=== PATIENT | female | born 1930 | race Caucasian/White ===

== ENCOUNTER 2017-12-21 11:53 | Inpatient (IN) ==
--- NOTE | 2017-12-21 16:22 | Orthopedic Consult Note ---
Date of Encounter: 12/21/17 Time of Encounter: 14:10 Assessment and Plan (1) Fracture of hip Current Visit: No Status: Acute Hip fracture will require surgical intervention. Discussed case with Dr. Ricardo who recommends right hip hemiarthroplasty to be performed tomorrow (12/22/17). I discussed the procedure with the patient as well as r/b/a and she expressed understanding. Consent obtained and placed in chart. NWB until surgery. NPO after midnight. pain control per hospitalist. Qualifiers: Encounter type: initial encounter Fracture type: closed Laterality: right Qualified Code(s): S72.001A - Fracture of unspecified part of neck of right femur, initial encounter for closed fracture History of Present Illness Chief complaint: right leg pain HPI: Ms. Magaña is a 87 year old female who presented to the ER with right leg pain. Most of her pain in the ankle but also has had some intermittent hip/ thigh aching, worse with walking. She admits to a fall roughly 1 month ago where she missed the last step in her home. She states she was unable to ambulate and family found her a couple days later. Since that time she has been "hobbling" around with a walker bearing some weight to leg. Normally she walked around without a walker before the fall. She states she never sought medical attention due to having things to take care of at home (taxes, roof repairs) but decided to seek medical attention now because her shoulders are getting sore from using the walker. Denies any numbness or tingling to legs. Denies any chest pain, SOB, fevers. Past Med Surg Social Fam HX - Past Medical History Medical history: no medical history Psychiatric history: no psych history - Past Surgical History Surgical History: non-contributory - Social History Smoking Status: Never smoker Smokeless Tobacco Status: No Alcohol use: none Drug use: none Medications and Allergies No Known Home Drugs 12/21/17 [History] 3 Allergy/AdvReac Type Severity Reaction Status Date / Time oseltamivir [From Tamiflu] Allergy Hallucinati Verified 12/21/17 12:46 ng All Systems Reviewed: The remainder of the systems were reviewed and are negative - Constitutional Constitutional: as per HPI - Cardiovascular Cardiovascular: as per HPI - Respiratory Respiratory: as per HPI - Musculoskeletal Musculoskeletal: as per HPI Physical Exam - Constitutional Vitals: Temp Pulse Resp BP Pulse Ox 98.1 F 81 18 143/63 98 12/21/17 16:12 12/21/17 16:12 12/21/17 16:12 12/21/17 16:12 12/21/17 16:12 - Hip right Tenderness with palpation: none (no wounds, lesions or ecchymosis to RLE, RLE shortened. no tenderness to palpation of hip. no calf tenderness to palpation. restricted hip motion seondary to known fracture. good dorsiflexion of foot, grossly NV intact.) Results - Labs Labs: All other labs normal. - Diagnostic results Hip x-ray: report reviewed, image reviewed Consult Discharge Plan - Plan Referrals: NONE,PCP [Primary Care Provider] - - Attending Attestation Case and plan of care discussed with supervising physician who was available for all aspects of care.
[2017-12-21] MEDS ORDERED: Acetaminophen 325 MG TABLET PO PRN (17:19)
[2017-12-21] MEDS ORDERED: Naloxone 0.4 MG/ML INJ IVP PRN (17:19)
[2017-12-21] MEDS ORDERED: Ondansetron 4 MG/2 ML VIAL IVP PRN (17:23)
--- NOTE | 2017-12-21 17:28 | Internal Med History&Physical ---
<Herb Lopez - Last Filed: 12/21/17 17:25> Date of Encounter: 12/21/17 Time of Encounter: 17:25 Internal Medicine - H&P: HPI Admitted From: Home Plans for Post Hospital Care: Transfer Jail Care History of present illness: Ms. Magaña is a 87 year old female who presented to the ER with right leg pain. Most of her pain in the ankle but also has had some intermittent hip/ thigh aching, worse with walking. She admits to a fall roughly 1 month ago where she missed the last step in her home. She states she was unable to ambulate and family found her a couple days later. Since that time she has been "hobbling" around with a walker bearing some weight to leg. Normally she walked around without a walker before the fall. She states she never sought medical attention due to having things to take care of at home (taxes, roof repairs) but decided to seek medical attention now because her shoulders are getting sore from using the walker. Denies any numbness or tingling to legs. Denies any chest pain, SOB, fevers. Past Med Surg Social Fam HX - Past Medical History Medical history: no medical history Psychiatric history: no psych history - Past Surgical History Surgical History: non-contributory - Social History Smoking Status: Never smoker Smokeless Tobacco Status: No Alcohol use: none Drug use: none Internal Medicine - H&P: Meds No Known Home Drugs 12/21/17 [History] 3 Allergy/AdvReac Type Severity Reaction Status Date / Time oseltamivir [From Tamiflu] Allergy Hallucinati Verified 12/21/17 12:46 ng All Systems PM: A 10-system review of systems was performed and is negative for pertinent findings except as documented above in the HPI. Review of systems: REVIEW OF SYSTEMS: CONSTITUTIONAL: No weight loss, fever, chills, weakness or fatigue. HEENT: Eyes: No visual loss, blurred vision, double vision or yellow sclerae. Ears, Nose, Throat: No hearing loss, sneezing, congestion, runny nose or sore throat. SKIN: No rash or itching. CARDIOVASCULAR: No chest pain, chest pressure or chest discomfort. No palpitations or edema. RESPIRATORY: No shortness of breath, cough or sputum. GASTROINTESTINAL: No anorexia, nausea, vomiting or diarrhea. No abdominal pain or blood. GENITOURINARY: No dysuria, urgency, or frequency. NEUROLOGICAL: No headache, dizziness, syncope, paralysis, ataxia, numbness or tingling in the extremities. No change in bowel or bladder control. MUSCULOSKELETAL: see HPI. HEMATOLOGIC: No anemia, bleeding or bruising. LYMPHATICS: No enlarged nodes. No history of splenectomy. PSYCHIATRIC: No history of depression or anxiety. ENDOCRINOLOGIC: No reports of sweating, cold or heat intolerance. No polyuria or polydipsia. - Constitutional Vitals: Temp Pulse Resp BP Pulse Ox 98.1 F 81 18 143/63 98 12/21/17 16:12 12/21/17 16:12 12/21/17 16:12 12/21/17 16:12 12/21/17 16:12 General appearance: Present: A&O X 3 Exam: PHYSICAL EXAMINATION: GENERAL APPEARANCE: The patient is alert, oriented and in no acute distress. HEENT: Head is normocephalic. The sinuses are nontender. Pupils are equal and reactive. The nares are patent. Oropharynx clear without lesions. NECK: Supple without lymphadenopathy. HEART: Regular rate and rhythm. LUNGS: No crackles or wheezes are heard. ABDOMEN: Soft, nontender, nondistended with good bowel sounds heard. Inguinal area is normal. EXTREMITIES: limited ROM on the right leg due to pain. NEUROLOGICAL: Gross nonfocal. SKIN: Warm and dry without any rash. - Assessment and plan (1) Fracture of hip Current Visit: No Status: Acute Assessment and plan: 87 year female transfer from [place] because of right leg pain after a fall. She is very healthy and has no past medical history besides cold/flu. X-ray of the right hip revealed fracture and right ankle sprain without any fracture. - Orthopedics saw the patient already, surgery was scheduled tomorrow. - Nothing by mouth after midnight, pain control. - Pending was a labs including vitamin D level. Qualifiers: Encounter type: initial encounter Fracture type: closed Laterality: right Qualified Code(s): S72.001A - Fracture of unspecified part of neck of right femur, initial encounter for closed fracture (2) Ankle sprain Current Visit: No Status: Acute Assessment and plan: - X-ray no fracture on the right ankle, pain control, physical therapy consult. Qualifiers: Encounter type: initial encounter Involved ligament of ankle: anterior talofibular ligament Laterality: right Qualified Code(s): S93.491A - Sprain of other ligament of right ankle, initial encounter - Time Spent With Patient Total time spent is greater than 50% in coordination of care (as documented) at patient's floor/unit and/or counseling patient: Greater than 35 minutes <Fabiana Teixeira - Last Filed: 12/21/17 21:00> Date of Encounter: 12/21/17 Internal Medicine - H&P: HPI History of present illness: Ms. Magaña is a 87 year old female All Systems PM: A 10-system review of systems was performed and is negative for pertinent findings except as documented above in the HPI. - Constitutional Vitals: Temp Pulse Resp BP Pulse Ox 97.9 F 79 18 111/65 96 12/21/17 19:04 12/21/17 19:04 12/21/17 19:04 12/21/17 19:04 12/21/17 19:04 Internal Med - H&P Results - Labs CBC & Chem 7: 12/21/17 17:36 12/21/17 17:36 Labs: Short CBC 12/21/17 Range/Units 17:36 WBC 3.8 L (4.3-11.1) K/mcL Hgb 12.6 (11.5-15.4) g/dL Hct 37.8 (35.3-44.9) % Plt Count 376 (140-400) K/mcL Neutrophils # 1.9 (1.6-8.9) K/mcL BMP 12/21/17 17:36 Sodium 141 Potassium 3.4 L Chloride 109 H Carbon Dioxide 25 BUN 13 Creatinine 0.55 L Glucose 85 Calcium 9.1 Liver Function 12/21/17 Range/Units 17:36 Total Bilirubin 0.2 L (0.3-1.0) mg/dL AST 28 (13-39) Units/L ALT 18 (7-52) Units/L Alkaline Phosphatase 93 (34-104) Units/L Albumin 3.7 (3.5-5.7) g/dL - Attending Attestation Patient was examined, reviewed the note and agreed with the plan. Patient went down to baseman to clean but fell in the bathroom and laid on the floor for almost 2 days as nobody was home and she was not able to move at all and was not having any emergency collar or phone. Her nephew came to check on her eventually and transferred to the hospital. Will check CPK to rule out rhabdomyolysis. Gentle hydration IV fluid normal saline 75 mL per hour started. - Assessment and plan (1) Fracture of hip Current Visit: No Status: Acute Qualifiers: Encounter type: initial encounter Fracture type: closed Laterality: right Qualified Code(s): S72.001A - Fracture of unspecified part of neck of right femur, initial encounter for closed fracture (2) Ankle sprain Current Visit: No Status: Acute Qualifiers: Encounter type: initial encounter Involved ligament of ankle: anterior talofibular ligament Laterality: right Qualified Code(s): S93.491A - Sprain of other ligament of right ankle, initial encounter - Time Spent With Patient Total time spent is greater than 50% in coordination of care (as documented) at patient's floor/unit and/or counseling patient:
[2017-12-21 17:54] LABS: Basophils % 1.1 %; Eosinophils # 0.2 K/mcL (0.0-0.6); Hematocrit 37.8 % (35.3-44.9); Hemoglobin 12.6 g/dL (11.5-15.4); Immature Granulocytes % 0.5 % (0-4); Lymphocytes # 1.1 K/mcL (0.6-4.6); Mean Corpuscular HGB Conc 33.3 g/dL (31.6-35.5); Mean Corpuscular Hemoglobin 32.5 pg (28.0-33.3); Mean Corpuscular Volume 97.4 fL (83.0-100.0); Mean Platelet Volume 9.3 fL (9.4-12.4); Monocytes # 0.5 K/mcL (0.0-1.3); Monocytes % 12.2 %; Neutrophils # 1.9 K/mcL (1.6-8.9); Platelet Count 376 K/mcL (140-400); Red Blood Count 3.88 M/mcL (3.82-4.97); Red Cell Distribution Width 13.3 % (11.5-14.5); Segmented Neutrophils % 51.2 %
[2017-12-21 18:03] LABS: INR 1.2; Prothrombin Time 12.8 Seconds (9.4-12.1)
[2017-12-21 18:05] LABS: Activated Partial Thrombo Time 27.7 Seconds (26.0-36.0)
[2017-12-21 18:12] LABS: Alanine Aminotransferase 18 Units/L (7-52); Albumin 3.7 g/dL (3.5-5.7); Albumin/Globulin Ratio 1.3 (1.1-2.2); Alkaline Phosphatase 93 Units/L (34-104); Aspartate Amino Transferase 28 Units/L (13-39); BUN/Creatinine Ratio 24 (6-26); Bilirubin,Total 0.2 mg/dL (0.3-1.0); Blood Urea Nitrogen 13 mg/dL (8-23); Calcium 9.1 mg/dL (8.6-10.3); Carbon Dioxide 25 mEq/L (23-29); Chloride 109 mEq/L (98-107); Chol/HDL Ratio 3.7 (0-4.9); Cholesterol 202 mg/dL (< 200); Globulin 2.9 g/dL (2.4-3.5); Glucose 85 mg/dL (70-105); HDL Cholesterol 54 mg/dL (40-59); LDL Cholesterol,Calculated 135 mg/dL (0-99); Osmolality,Calculated 291 (280-300); Potassium 3.4 mEq/L (3.5-5.1); Sodium 141 mEq/L (136-145); Total Protein 6.6 g/dL (6.4-8.9); Triglycerides 67 mg/dL (< 150); eGFR For African Americans > 60 (> 60); eGFR For Non-African Americans > 60 (> 60)
[2017-12-21] MEDS: 0.9 % Sodium Chloride 1,000 ML IVC SCH (21:16)
[2017-12-21] MEDS: *HR* Heparin 5,000 UNIT/ML VIAL SQ SCH (23:25)
[2017-12-21] MEDS: traMADol 50 MG TABLET PO PRN (23:28)
[2017-12-22 02:23] LABS: INR 1.2; Prothrombin Time 13.4 Seconds (9.4-12.1)
[2017-12-22 02:36] LABS: BUN/Creatinine Ratio 24 (6-26); Blood Urea Nitrogen 13 mg/dL (8-23); Calcium 8.6 mg/dL (8.6-10.3); Carbon Dioxide 23 mEq/L (23-29); Chloride 110 mEq/L (98-107); Glucose 92 mg/dL (70-105); Osmolality,Calculated 288 (280-300); Potassium 4.2 mEq/L (3.5-5.1); Sodium 139 mEq/L (136-145); eGFR For African Americans > 60 (> 60); eGFR For Non-African Americans > 60 (> 60)
[2017-12-22] MEDS: *HR* Heparin 5,000 UNIT/ML VIAL SQ SCH ×2 (07:15→15:24)
[2017-12-22] MEDS: traMADol 50 MG TABLET PO PRN (08:51)
[2017-12-22] MEDS: 0.9 % Sodium Chloride 1,000 ML IVC SCH (08:51)
--- NOTE | 2017-12-22 16:31 | Internal Med Progress Note ---
Date of Encounter: 12/22/17 Time of Encounter: 16:28 - Assessment and plan (1) Fracture of hip Current Visit: No Status: Inactive Assessment and plan: Right hip fracture after a fall transferred from [facility]. She is very healthy and has no past medical history besides cold/flu. X-ray of the right hip revealed fracture and right ankle sprain without any fracture. - Orthopedics saw the patient already, surgery was scheduled for later today - Nothing by mouth -IV fluids Tramadol for pain Qualifiers: Encounter type: initial encounter Fracture type: closed Laterality: right Qualified Code(s): S72.001A - Fracture of unspecified part of neck of right femur, initial encounter for closed fracture (2) Ankle sprain Current Visit: No Status: Inactive Assessment and plan: - X-ray no fracture on the right ankle, pain control, physical therapy consult. Qualifiers: Encounter type: initial encounter Involved ligament of ankle: anterior talofibular ligament Laterality: right Qualified Code(s): S93.491A - Sprain of other ligament of right ankle, initial encounter (3) Leukopenia Current Visit: Yes Status: Acute Assessment and plan: Nonspecific neck Recheck in the morning Qualifiers: Neutropenia type: unspecified Qualified Code(s): D70.9 - Neutropenia, unspecified (4) Hypokalemia Current Visit: Yes Status: Acute Assessment and plan: Resolved - Time Spent With Patient Total time spent is greater than 50% in coordination of care (as documented) at patient's floor/unit and/or counseling patient: - Subjective Interval history: Complains of right hip pain, tolerable, 5 out of 10 in intensity. Denies any chest pain or shortness of breath, no abdominal pain, no fevers or diarrhea, no dysuria - Constitutional Vitals: Temp Pulse Resp BP Pulse Ox 98.4 F 79 16 128/55 93 12/22/17 14:37 12/22/17 14:37 12/22/17 14:37 12/22/17 14:37 12/22/17 14:37 General appearance: Present: A&O X 3 - Head Head exam: Present: atraumatic, normocephalic - Eye Eye exam: Present: PERRL, conjuntiva pink, sclera anicteric Pupils: Present: PERRL - Neck Neck exam general surgery: Present: supple, trachea midline. Absent: lymphadenopathy - Respiratory Respiratory exam: Present: CTAB. Absent: accessory muscle use, rales, rhonchi, wheezes - Cardiovascular Cardiovascular exam: Present: RRR, +S1, +S2. Absent: diastolic murmur, gallop, rubs, systolic murmur - GI/Abdominal GI/Abdominal exam: Present: normal bowel sounds, soft, no peritoneal signs. Absent: distended, tenderness - Extremities Exam Extremities exam: Present: warm, radial pulses palpable and symmetrical. Absent : calf tenderness, cyanotic, pedal edema - Neurological Exam Neurological exam: Present: CN II-XII intact, oriented X3, no focal deficits. Absent: pronater drift, facial droop, speech deficit - Skin Skin exam: Present: dry, intact Additional comments: Right hip swelling Internal Medicine: Result - Labs CBC & Chem 7: 12/21/17 17:36 12/22/17 01:16 Labs: Short CBC 12/21/17 Range/Units 17:36 WBC 3.8 L (4.3-11.1) K/mcL Hgb 12.6 (11.5-15.4) g/dL Hct 37.8 (35.3-44.9) % Plt Count 376 (140-400) K/mcL Neutrophils # 1.9 (1.6-8.9) K/mcL BMP 12/21/17 12/22/17 17:36 01:16 Sodium 141 139 Potassium 3.4 L 4.2 Chloride 109 H 110 H Carbon Dioxide 25 23 BUN 13 13 Creatinine 0.55 L 0.55 L Glucose 85 92 Calcium 9.1 8.6 Liver Function 12/21/17 Range/Units 17:36 Total Bilirubin 0.2 L (0.3-1.0) mg/dL AST 28 (13-39) Units/L ALT 18 (7-52) Units/L Alkaline Phosphatase 93 (34-104) Units/L Albumin 3.7 (3.5-5.7) g/dL - ABG Interpretation ABG results: PT/INR, D-dimer PT 13.4 Seconds (9.4-12.1) H 12/22/17 01:16 Consult Discharge Plan - Plan Referrals: NONE,PCP [Primary Care Provider] -
[2017-12-22] MEDS ORDERED: *HR* Propofol 200 MG/20 ML VIAL IVP ONE (16:45)
[2017-12-22] MEDS ORDERED: *HR* FentaNYL (PF) 100 MCG/2 ML VIAL ONE (16:45)
[2017-12-22] MEDS ORDERED: Lidocaine -MPF 2% 2 ML VIAL ONE ×2 (16:46→17:24)
[2017-12-22] MEDS ORDERED: *HR* Succinylcholine 200 MG/10 ML VIAL IVP ONE (16:47)
[2017-12-22] MEDS ORDERED: Acetaminophen IV 1,000 MG/100 ML INFUS..BTL ONE (16:48)
[2017-12-22] MEDS ORDERED: Morphine Sulfate/PF 5mg/10mL Vial ONE (17:14)
--- NOTE | 2017-12-22 17:22 | Anesthesia Evaluation PreOp ---
Date of Encounter: 12/22/17 Time of Encounter: 17:20 - Past History Planned Operation: Right denise hip arthroplasty Cardiac History: Denies any Significant Hx Pulmonary History: Denies Any Significant HX RESEARCH LABORATORY TECHNICIAN History: Denies Any Significant HX Other Medical History: Denies Any Significant HX Alcohol Use: none Drug use: none Medications and Allergies No Known Home Drugs 12/21/17 [History] 3 Allergy/AdvReac Type Severity Reaction Status Date / Time oseltamivir [From Tamiflu] Allergy Hallucinati Verified 12/21/17 12:46 ng - Meds/Allergy Pre-op Review Medications Reviewed: Yes Allergies Reviewed: Yes Beta Blockers on Current Med List: No Anesthesia Results - Labs 12/21/17 17:36 12/22/17 01:16 Anesthesia Exam Vital Signs/O2 Sat, Most Current Temp Pulse Resp BP Pulse Ox 98.4 F 79 16 128/55 93 12/22/17 14:37 12/22/17 14:37 12/22/17 14:37 12/22/17 14:37 12/22/17 14:37 Weight: 61 kg NPO (# of Hours): 8 - HEENT Mallampati: I Denture Type: Upper: Complete (Implanted posts), Lower: Complete Oral Opening: Greater than 3 - RESEARCH LABORATORY TECHNICIAN LOC: Oriented (Awake alert) - Cardiac Rhythm: Regular - Pulmonary Breath Sounds: bilateral Clear Anesthesia Assess/Plan ASA Score: 2 Modified Imer Scale for Level of Consciousness: Cooperative, oriented, and tranquil Anesthetic Plan: Regional (SAB) Monitoring Plan: Standard Monitors Recovery Plan: PACU Anes Supervising Prov Stmt: Patient informed and consented. Risks, benefits, and alternatives discussed. Patient wishes to proceed.
[2017-12-22] MEDS ORDERED: *HR* OxyCODONE Immed Rel 5 MG TABLET PO PRN ×2 (17:34→18:40)
[2017-12-22] MEDS ORDERED: Ondansetron 4 MG/2 ML VIAL IVP PRN ×3 (17:34→21:48)
[2017-12-22] MEDS ORDERED: Temazepam 15 MG CAPSULE PO PRN ×2 (17:34→21:48)
[2017-12-22] MEDS ORDERED: MOM Conc 10 ML UD.LIQ PO PRN (17:34)
[2017-12-22] MEDS ORDERED: *HR* HYDROcodone/Acet 5/325 mg TABLET PO PRN (17:34)
[2017-12-22] MEDS ORDERED: Sennosides 8.6 MG TABLET PO PRN ×2 (17:34→21:48)
[2017-12-22] MEDS ORDERED: Naloxone 0.4 MG/ML INJ IVP PRN (17:34)
[2017-12-22] MEDS ORDERED: Acetaminophen 325 MG TABLET PO PRN ×2 (17:34→21:48)
[2017-12-22] MEDS ORDERED: Ringers Solution, Lactated 1,000 ML IVC SCH (17:45)
[2017-12-22] MEDS ORDERED: Dexamethasone 4 MG/ML VIAL ONE (18:15)
[2017-12-22] MEDS ORDERED: Ondansetron 4 MG/2 ML VIAL ONE (18:15)
[2017-12-22] MEDS ORDERED: *HR* Rocuronium Bromide 50 MG/5 ML VIAL ONE (18:38)
[2017-12-22] MEDS ORDERED: *HR* Labetalol 100 MG/20 ML MDV IVP PRN (18:40)
[2017-12-22] MEDS ORDERED: *HR* PHENYLEPHRINE 1,000 MCG/10 ML SYRINGE IVP ONE (19:29)
--- NOTE | 2017-12-22 20:20 | Operative Note ---
Date of procedure: 12/22/17 Pre-op diagnosis: Right hip femoral neck fracture, displaced, chronic Post-op diagnosis: same Procedure: Right hip hemiarthroplasty Implants: [employer] Echo Bi-Metric hip system Anesthesia: NORAA Surgeon: Raymond Ricardo Was there an financial administrative assistant present: No Estimated blood loss (cc): 250 Specimen: Sent to pathology Condition: stable Disposition: PACU Procedure in Detail: The patient received IV antibiotics in the holding area. She was brought to the operating room, sign in was performed. The patient underwent general anesthesia on the hospital bed. She was then transferred to the OR table in supine position. The patient was positioned in the left lateral decubitus position, supported by pelvic supports. Bony prominences of the left lower extremity were well padded. The right lower extremity was then prepped and draped in usual sterile fashion. A timeout was performed. The level of the greater trochanter was palpated, a 10-12 cm curvilinear posterior incision was made, followed by Bovie dissection. The hip abductor was sharply split in line with its fibers with a curved Gandhi scissors, incising the fascia over the gluteus loki also. The Charnley retractors were then positioned, making sure all not to go too deeply, to protect the sciatic nerve. The bursa over the greater trochanter was excised with Bovie electrocautery. The left hip was then internally rotated, putting the short external rotators on stretch. These were taken down from the insertion point with the Bovie cautery, starting from less of a trochanter and going approximately to the femoral neck. The capsule along the posterior femoral neck and head was then T' ed, giving exposure to the fractured femoral head/neck. The head was then removed with a power corkscrew, and cutting the ligamentum teres. The head was measured and a size 44 mm diameter was chosen. The acetabulum was washed out of any bone fragments, and a trial head was placed giving a good fit. Next, the exposed fractured femoral neck was cleaned up with a rongeur, a wood box maker was then used to remove the lateral bone. The canal finder was then inserted. We then started broaching with a press-fit broaches from the [employer] echo tray. Starting with a press-fit 7, and moving up to a press-fit 8, keeping the appropriate anteversion, finally a 15. The fracture was very low this was a chronic injury with neck and head destruction. The trial stem was well fixed with no toggling. The broach was then removed. The canal was irrigated out and suctioned. The [employer] Echo press-fit stem was then opened, using a lateralized 130 degree neck angle and a size 15 pressfit stem, the implant was tapped in place, making sure to keep the correct anteversion. Once well positioned, we trialed with a 15 mm diameter trial head, and a -6 neck length. The proximal femur was very shortened. The patient is paralyzed. Stability was checked along with leg length, it was felt that the leg length was slightly short. The muscle start lengthening also with a hip reduced. I then trialed with a -3 mm neck length. Next followed with a neutral. The leg lengths felt equal, the patient had good extension of the left lower extremity, is able to flex the hip, adduct , and internally rotated up to 60 degrees before the hip started subluxing out. The trial components removed. The acetabulum was copiously irrigated with normal saline once again making sure it was well cleaned out. Next the 44 mm unipolar head was opened with a neutral neck length. This assembled and tapped in place. The hip was reduced, and stability was checked once again. We had good stability. The capsule was then closed with 2-0 FiberWire figure of 8 sutures. The leg was placed on Gandhi stand, and the short external rotators were reattached to the bone using the FiberWire. The tensor fascia along with the gluteus fascia was closed with FiberWire [id number] sutures and a #1 Vicryl running suture proximally. Once again irrigating the wound with pulse lavage. The deep fat layer was closed with 0 Vicryl, subcutaneous tissues with 2-0 Vicryl simple sutures, and finally the skin was closed with 3-0 Vicryl followed by a few amy and the Zipline system. Sterile dressings were applied. A hip abduction wedge was in place between the patient's legs. She was then rolled over into supine position and transferred back onto the hospital bed where she was extubated and taken to the recovery room in stable condition.
[2017-12-22] MEDS: *HR* HYDROmorphone (PF) 1 MG/ML SYRINGE IVP PRN ×2 (20:49→21:01)
--- NOTE | 2017-12-22 21:27 | Anesthesia Evaluation Post Op ---
Date of Encounter: 12/22/17 Time of Encounter: 21:26 - Vital Signs Vital Signs: Vital Signs/O2 Sat, Most Current Temp Pulse Resp BP Pulse Ox 98.6 F 72 16 151/63 100 12/22/17 21:12 12/22/17 21:12 12/22/17 21:12 12/22/17 21:12 12/22/17 21:12 - Lungs Lungs: Clear Ascult./Percussion - Airway Airway: Non-obstructed - Cardiovascular Regular Rate - Mental Status Mental Status: Alert & Oriented, Answers Appropriately - Pain Pain Scale: 4 Pain Scale used: Numeric (1 - 10) - Nausea Vomiting Nausea Vomiting: Not Present - Hydration Hydration: Ice chips, Centeno catheter - Discharge PostOp Status: Transfer Patient to floor
[2017-12-22] MEDS ORDERED: 0.9 % Sodium Chloride 1,000 ML IVC SCH (21:48)
[2017-12-23] MEDS ORDERED: CeFAZolin Pre 2,000 MG/100 ML 2,000 MG/100 ML BAG IVPB SCH
[2017-12-23 01:58] LABS: Hemoglobin 10.8 g/dL (11.5-15.4); Mean Corpuscular HGB Conc 32.7 g/dL (31.6-35.5); Mean Corpuscular Hemoglobin 32.1 pg (28.0-33.3); Mean Corpuscular Volume 98.2 fL (83.0-100.0); Mean Platelet Volume 9.4 fL (9.4-12.4); Platelet Count 261 K/mcL (140-400); Red Blood Count 3.36 M/mcL (3.82-4.97); Red Cell Distribution Width 12.5 % (11.5-14.5)
[2017-12-23 02:18] LABS: BUN/Creatinine Ratio 20 (6-26); Blood Urea Nitrogen 10 mg/dL (8-23); Calcium 8.2 mg/dL (8.6-10.3); Carbon Dioxide 21 mEq/L (23-29); Chloride 105 mEq/L (98-107); Glucose 199 mg/dL (70-105); Osmolality,Calculated 281 (280-300); Potassium 4.8 mEq/L (3.5-5.1); Sodium 133 mEq/L (136-145); eGFR For African Americans > 60 (> 60); eGFR For Non-African Americans > 60 (> 60)
[2017-12-23] MEDS ORDERED: SODIUM CHLORIDE MINI 0.9% IVPB SCH (03:00)
[2017-12-23] MEDS ORDERED: CEFAZOLIN IVPB SCH (03:00)
[2017-12-23] MEDS: CeFAZolin Pre 2,000 MG/100 ML 2,000 MG/100 ML BAG IVPB SCH ×2 (03:31→10:54)
[2017-12-23] MEDS: *HR* OxyCODONE Immed Rel 5 MG TABLET PO PRN ×4 (03:37→23:06)
[2017-12-23] MEDS: *HR* Enoxaparin 30 MG/0.3 ML SYRINGE SQ SCH ×2 (05:20→16:19)
[2017-12-23] MEDS ORDERED: Ascorbic Acid 500 MG TABLET PO SCH (08:00)
[2017-12-23 08:19] LABS: Hematocrit 34.4 % (35.3-44.9)
[2017-12-23] MEDS ORDERED: Multivit/Ca/Min/Fe/FA 1 TAB TABLET PO SCH (09:00)
--- NOTE | 2017-12-23 10:57 | Internal Med Progress Note ---
Date of Encounter: 12/23/17 Time of Encounter: 10:54 - Assessment and plan (1) Fracture of hip Current Visit: No Status: Inactive Assessment and plan: Right hip fracture after a fall s/p hemiarthroplasty transferred from [facility]. She is very healthy and has no past medical history besides cold/flu. X-ray of the right hip revealed fracture and right ankle sprain without any fracture. Surgery performed by Dr Ricardo on 12/22/17 - Post op day #1 - december stop IV fluids Tramadol for pain Qualifiers: Encounter type: initial encounter Fracture type: closed Laterality: right Qualified Code(s): S72.001A - Fracture of unspecified part of neck of right femur, initial encounter for closed fracture (2) Ankle sprain Current Visit: No Status: Inactive Assessment and plan: - X-ray no fracture on the right ankle, pain control, physical therapy consult. Qualifiers: Encounter type: initial encounter Involved ligament of ankle: anterior talofibular ligament Laterality: right Qualified Code(s): S93.491A - Sprain of other ligament of right ankle, initial encounter (3) Leukopenia Current Visit: Yes Status: Acute Assessment and plan: Nonspecific , resolved Qualifiers: Neutropenia type: unspecified Qualified Code(s): D70.9 - Neutropenia, unspecified (4) Hypokalemia Current Visit: Yes Status: Acute Assessment and plan: Resolved (5) Hyponatremia Current Visit: Yes Status: Acute Assessment and plan: nonspecific - Time Spent With Patient Total time spent is greater than 50% in coordination of care (as documented) at patient's floor/unit and/or counseling patient: - Subjective Interval history: Complaining of mild right hip pain, tolerable, 4 out of 10 in intensity. Denies any chest pain or shortness of breath, no abdominal pain, no fevers or diarrhea, no dysuria - Constitutional Vitals: Temp Pulse Resp BP Pulse Ox 98.2 F 80 18 133/67 93 12/23/17 10:33 12/23/17 10:33 12/23/17 10:33 12/23/17 10:33 12/23/17 10:33 General appearance: Present: A&O X 3 - Head Head exam: Present: atraumatic, normocephalic - Eye Eye exam: Present: PERRL, conjuntiva pink, sclera anicteric Pupils: Present: PERRL - Neck Neck exam general surgery: Present: supple, trachea midline. Absent: lymphadenopathy - Respiratory Respiratory exam: Present: CTAB. Absent: accessory muscle use, rales, rhonchi, wheezes - Cardiovascular Cardiovascular exam: Present: RRR, +S1, +S2. Absent: diastolic murmur, gallop, rubs, systolic murmur - GI/Abdominal GI/Abdominal exam: Present: normal bowel sounds, soft, no peritoneal signs. Absent: distended, tenderness - Extremities Exam Extremities exam: Present: warm, radial pulses palpable and symmetrical. Absent : calf tenderness, cyanotic, pedal edema - Neurological Exam Neurological exam: Present: CN II-XII intact, oriented X3, no focal deficits. Absent: pronater drift, facial droop, speech deficit - Skin Skin exam: Present: dry. Absent: intact Additional comments: right hip surgical wound without signs of infection of hematoma Internal Medicine: Result - Labs CBC & Chem 7: 12/23/17 07:24 12/23/17 01:45 Labs: Short CBC 12/23/17 12/23/17 Range/Units 01:45 07:24 WBC 9.7 D (4.3-11.1) K/mcL Hgb 10.8 L D 11.0 L (11.5-15.4) g/dL Hct 33.0 L 34.4 L (35.3-44.9) % Plt Count 261 (140-400) K/mcL BMP 12/23/17 01:45 Sodium 133 L Potassium 4.8 Chloride 105 Carbon Dioxide 21 L BUN 10 Creatinine 0.50 L Glucose 199 H Calcium 8.2 L - ABG Interpretation ABG results: PT/INR, D-dimer PT 13.4 Seconds (9.4-12.1) H 12/22/17 01:16 - Impressions Impressions Hip X-Ray 12/22/17 00:00 IMPRESSION: Expected postsurgical changes from right hip hemiarthroplasty. D/ / 12/22/2017 21:09:02 Gin Pereyra MD / vilma Interpreting Provider: Gin Pereyra MD - VTE Documentation of Mechanical Device: Intermittent pneumatic compression device Consult Discharge Plan - Plan Referrals: NONE,PCP [Primary Care Provider] -
--- NOTE | 2017-12-23 13:05 | Orthopedics Progress Note ---
Date of Encounter: 12/23/17 Time of Encounter: 12:30 - Assessment and Plan (1) Fracture of hip Current Visit: No Status: Inactive POD#1 s/p right hip hemiarthroplasty 12/23/17 postop xrays did not include full pelvis view so will order this now. Some older drainage noted to dressings within borders drawn by nurse. Will continue to monitor and nurse will notify if surpasses borders. Dressings to be changed before discharge. Continue with therapy, WBAT Ice to right hip as needed. DVT prophylaxis - recommend lovenox for 2 weeks and then aspirin 325mg daily for 4 weeks after that. Will follow up with Jacqueline Membreno PA-C in [place] office at [facility]. Qualifiers: Encounter type: initial encounter Fracture type: closed Laterality: right Qualified Code(s): S72.001A - Fracture of unspecified part of neck of right femur, initial encounter for closed fracture Subjective Principal diagnosis: POD#1 s/p right hip hemiarthroplasty 12/22/17 Interval history: Patient doing well today. States hands are sore from using walker. She did get up and walk with therapist but states it was rough due to pain in right leg. Denies any n/t in leg, denies calf pain. No events overnight. Objective Vital signs: Vital Signs Temp Pulse Resp BP Pulse Ox 12/23/17 10:33 98.2 F 80 18 133/67 93 12/23/17 06:23 98.4 F 84 18 122/55 99 12/23/17 03:54 97.6 F 89 119/64 17 12/22/17 23:00 97.7 F 78 16 119/64 100 12/22/17 22:15 98.2 F 77 17 106/57 100 12/22/17 21:35 97.8 F 76 15 136/60 95 12/22/17 21:12 98.6 F 72 16 151/63 100 12/22/17 21:02 79 16 149/75 97 12/22/17 20:52 98.5 F 75 16 151/65 99 12/22/17 20:42 76 14 155/69 98 12/22/17 20:32 84 14 162/77 99 12/22/17 20:22 99.4 F 71 14 137/68 99 12/22/17 14:37 98.4 F 79 16 128/55 93 Intake and Output 12/22/17 12/23/17 12/23/17 23:59 07:59 15:59 Intake Total 400 / 400 Output Total 750 / 750 1200 / 1200 Balance -750 / -750 -1200 / -1200 400 / 400 Intake: IV Fluids 100 / 100 Ancef Premix 2,000 MG/100 ML 2, 100 / 100 000 mg In 100 ml @ 200 mls/hr IVPB Q8H LEYLA Rx#:[id number] Oral 300 / 300 Output: Estimated Blood Loss 250 / 250 Urine Amount (Catheter) 500 / 500 Catheter 1200 / 1200 Other: Meal Lunch Percent of Meal Consumed 50% # Voids 1 Incision: draining (There is area of bleeding noted on dressings, appears old, within markings from this morning. no calf tenderness, good dorsiflexion of foot , grossly NV intact) - Labs CBC & BMP: 12/23/17 07:24 12/23/17 01:45 Labs: Abnormal lab results RBC 3.36 M/mcL (3.82-4.97) L 12/23/17 01:45 Hgb 11.0 g/dL (11.5-15.4) L 12/23/17 07:24 Hct 34.4 % (35.3-44.9) L 12/23/17 07:24 PT 13.4 Seconds (9.4-12.1) H 12/22/17 01:16 Sodium 133 mEq/L (136-145) L 12/23/17 01:45 Carbon Dioxide 21 mEq/L (23-29) L 12/23/17 01:45 Creatinine 0.50 mg/dL (0.60-1.20) L 12/23/17 01:45 Glucose 199 mg/dL (70-105) H 12/23/17 01:45 Calcium 8.2 mg/dL (8.6-10.3) L 12/23/17 01:45 Total Bilirubin 0.2 mg/dL (0.3-1.0) L 12/21/17 17:36 Cholesterol 202 mg/dL (< 200) H 12/21/17 17:36 LDL Cholesterol, Calc 135 mg/dL (0-99) H 12/21/17 17:36 - VTE Documentation of Mechanical Device: Intermittent pneumatic compression device Consult Discharge Plan - Plan Referrals: NONE,PCP [Primary Care Provider] -
[2017-12-23] MEDS ORDERED: *HR* Enoxaparin 30 MG/0.3 ML SYRINGE SQ SCH ×2 (17:37)
[2017-12-24] MEDS: *HR* OxyCODONE Immed Rel 5 MG TABLET PO PRN ×2 (05:21→09:59)
[2017-12-24] MEDS: *HR* Enoxaparin 30 MG/0.3 ML SYRINGE SQ SCH ×2 (06:07→18:56)
[2017-12-24 06:19] LABS: BUN/Creatinine Ratio 29 (6-26); Blood Urea Nitrogen 12 mg/dL (8-23); Carbon Dioxide 24 mEq/L (23-29); Chloride 103 mEq/L (98-107); Glucose 137 mg/dL (70-105); Osmolality,Calculated 278 (280-300); Sodium 133 mEq/L (136-145); eGFR For African Americans > 60 (> 60); eGFR For Non-African Americans > 60 (> 60)
[2017-12-24 06:24] LABS: Hematocrit 27.4 % (35.3-44.9); Hemoglobin 9.2 g/dL (11.5-15.4); Immature Platelets 2.3 % (1.1-6.1); Mean Corpuscular HGB Conc 33.6 g/dL (31.6-35.5); Mean Corpuscular Hemoglobin 32.7 pg (28.0-33.3); Mean Corpuscular Volume 97.5 fL (83.0-100.0); Mean Platelet Volume 10.1 fL (9.4-12.4); Red Blood Count 2.81 M/mcL (3.82-4.97); Red Cell Distribution Width 12.6 % (11.5-14.5)
--- NOTE | 2017-12-24 10:05 | Internal Med Progress Note ---
Date of Encounter: 12/24/17 Time of Encounter: 10:02 - Assessment and plan (1) Acute blood loss as cause of postoperative anemia Current Visit: Yes Status: Acute Assessment and plan: Recheck H&H later today and tomorrow, consider transfusions Continue IV fluids Start omeprazole and order Hemoccult, the patient has not had any bowel movements, unlikely GI bleed (2) Fracture of hip Current Visit: No Status: Inactive Assessment and plan: Right hip fracture after a fall s/p hemiarthroplasty transferred from [facility]. She is very healthy and has no past medical history besides cold/flu. X-ray of the right hip revealed fracture and right ankle sprain without any fracture. Surgery performed by Dr Ricardo on 12/22/17 - Post op day #2 - resume IV fluids ( tachycardia) Order chest x-ray, UA and blood cultures Tramadol for pain Qualifiers: Encounter type: initial encounter Fracture type: closed Laterality: right Qualified Code(s): S72.001A - Fracture of unspecified part of neck of right femur, initial encounter for closed fracture (3) Ankle sprain Current Visit: No Status: Inactive Assessment and plan: - X-ray no fracture on the right ankle, pain control, physical therapy consult. Qualifiers: Encounter type: initial encounter Involved ligament of ankle: anterior talofibular ligament Laterality: right Qualified Code(s): S93.491A - Sprain of other ligament of right ankle, initial encounter (4) Leukopenia Current Visit: Yes Status: Acute Assessment and plan: Nonspecific , resolved Qualifiers: Neutropenia type: unspecified Qualified Code(s): D70.9 - Neutropenia, unspecified (5) Hypokalemia Current Visit: Yes Status: Acute Assessment and plan: Resolved (6) Hyponatremia Current Visit: Yes Status: Acute Assessment and plan: nonspecific - Time Spent With Patient Total time spent is greater than 50% in coordination of care (as documented) at patient's floor/unit and/or counseling patient: - Subjective Interval history: Tachycardic. Complaining of mild right hip pain, tolerable, 5 out of 10 in intensity. Denies any chest pain or shortness of breath, no abdominal pain, no fevers or diarrhea, no dysuria - Constitutional Vitals: Temp Pulse Resp BP Pulse Ox 99.2 F 102 17 110/61 94 12/24/17 07:22 12/24/17 07:22 12/24/17 07:22 12/24/17 07:22 12/24/17 07:22 General appearance: Present: A&O X 3 Exam: - Head Head exam: Present: atraumatic, normocephalic - Eye Eye exam: Present: PERRL, conjuntiva pink, sclera anicteric Pupils: Present: PERRL - Neck Neck exam general surgery: Present: supple, trachea midline. Absent: lymphadenopathy - Respiratory Respiratory exam: Present: CTAB. Absent: accessory muscle use, rales, rhonchi, wheezes - Cardiovascular Cardiovascular exam: Present: RRR, +S1, +S2. Tachycardic Absent: diastolic murmur, gallop, rubs, systolic murmur - GI/Abdominal GI/Abdominal exam: Present: normal bowel sounds, soft, no peritoneal signs. Absent: distended, tenderness - Extremities Exam Extremities exam: Present: warm, radial pulses palpable and symmetrical. Absent : calf tenderness, cyanotic, pedal edema - Neurological Exam Neurological exam: Present: CN II-XII intact, oriented X3, no focal deficits. Absent: pronater drift, facial droop, speech deficit - Skin Skin exam: Present: dry. Absent: intact Additional comments: right hip surgical wound without signs of infection of hematoma Internal Medicine: Result - Labs CBC & Chem 7: 12/24/17 02:06 12/24/17 02:06 Labs: Short CBC 12/24/17 Range/Units 02:06 WBC 6.8 (4.3-11.1) K/mcL Hgb 9.2 L D (11.5-15.4) g/dL Hct 27.4 L (35.3-44.9) % Plt Count 251 (140-400) K/mcL BMP 12/24/17 02:06 Sodium 133 L Potassium 4.0 Chloride 103 Carbon Dioxide 24 BUN 12 Creatinine 0.41 L Glucose 137 H Calcium 8.0 L - ABG Interpretation ABG results: PT/INR, D-dimer PT 13.4 Seconds (9.4-12.1) H 12/22/17 01:16 - Impressions Impressions Hip/Pelvis X-Ray 12/23/17 12:59 IMPRESSION: Expected postsurgical changes following right hip hemiarthroplasty. D/ / Venkat Abad / Venkat Abad Interpreting Provider: Venkat Abad - VTE Documentation of Mechanical Device: Intermittent pneumatic compression device Consult Discharge Plan - Plan Referrals: NONE,PCP [Primary Care Provider] -
[2017-12-24] MEDS: 0.9 % Sodium Chloride 1,000 ML IVC SCH ×2 (12:08→22:25)
[2017-12-24 13:41] LABS: Bilirubin,Urine Negative (Negative); Blood,Urine Trace (Negative); Clarity,Urine Cloudy (Clear); Color,Urine Yellow (Yellow); Glucose,Urine (UA) Normal (Normal); Ketones,Urine Negative (Negative); Leukocyte Esterase,Urine Moderate (Negative); Nitrite,Urine Negative (Negative); Protein,Urine 30 mg/dL (Neg-Trace); Specific Gravity,Urine 1.022 (1.010-1.025); Urobilinogen,Urine Normal (Normal)
[2017-12-24 13:43] LABS: Bacteria,Urine None Seen per hpf (None-Few); Hyaline Casts,Urine None Seen per lpf (None-Few); Squamous Epithelial Cell,Urine Many per lpf (None-Few); WBC,Urine 30-50 per hpf (0-3)
--- NOTE | 2017-12-24 14:24 | Orthopedics Progress Note ---
Date of Encounter: 12/24/17 Time of Encounter: 12:00 - Assessment and Plan (1) Fracture of hip Current Visit: No Status: Inactive POD#2 s/p right hip hemiarthroplasty 12/23/17 Drainage noted yesterday has not passed to drawn borders in past 24 hours. Nurse will change dressings today. Continue with therapy, WBAT Ice to right hip as needed. Hgb 9.2 today - hospitalist monitoring, possible transfusion. DVT prophylaxis - recommend lovenox for 2 weeks and then aspirin 325mg daily for 4 weeks after that. Patient accepted at [facility] upon discharge once medically stable. Will follow up with Jacqueline Membreno PA-C in [facility] office at [facility]. Qualifiers: Encounter type: initial encounter Fracture type: closed Laterality: right Qualified Code(s): S72.001A - Fracture of unspecified part of neck of right femur, initial encounter for closed fracture Subjective Principal diagnosis: POD#2 s/p right hip hemiarthroplasty 12/22/17 Interval history: Patient doing well today and she states she feels better today than she did yesterday. States therapy went better today. Denies any n/t in leg, denies calf pain. She has had a slight fever today but overall she feels well. Objective Vital signs: Vital Signs Temp Pulse Resp BP Pulse Ox 12/24/17 11:59 99.2 F 105 16 113/60 95 12/24/17 07:22 99.2 F 102 17 110/61 94 12/24/17 05:54 99.2 F 100 16 109/54 93 12/24/17 00:39 99.8 F H 102 16 107/54 97 12/23/17 20:11 98.7 F 107 18 101/46 98 12/23/17 14:29 98.6 F 90 18 124/68 96 Intake and Output 12/23/17 12/24/17 12/24/17 23:59 07:59 15:59 Intake Total 500 / 500 100 / 100 120 / 120 Output Total 450 / 450 0 / 0 700 / 700 Balance 50 / 50 100 / 100 -580 / -580 Intake: Oral 500 / 500 100 / 100 120 / 120 Output: Urine 450 / 450 0 / 0 700 / 700 Other: Meal Dinner Breakfast Percent of Meal Consumed 25% 50% # Voids 1 Incision: draining (There is old drainage noted yesterday not beyond the borders in last 24 hrs. No surrounding erythema, no calf tenderness to palpation. Good dorsiflexion of foot. grossly NV intact. ) - Labs CBC & BMP: 12/24/17 02:06 12/24/17 02:06 Labs: Abnormal lab results RBC 2.81 M/mcL (3.82-4.97) L 12/24/17 02:06 Hgb 9.2 g/dL (11.5-15.4) L D 12/24/17 02:06 Hct 27.4 % (35.3-44.9) L 12/24/17 02:06 PT 13.4 Seconds (9.4-12.1) H 12/22/17 01:16 Sodium 133 mEq/L (136-145) L 12/24/17 02:06 Creatinine 0.41 mg/dL (0.60-1.20) L 12/24/17 02:06 BUN/Creatinine Ratio 29 (6-26) H 12/24/17 02:06 Glucose 137 mg/dL (70-105) H 12/24/17 02:06 Calculated Osmolality 278 (280-300) L 12/24/17 02:06 Calcium 8.0 mg/dL (8.6-10.3) L 12/24/17 02:06 Total Bilirubin 0.2 mg/dL (0.3-1.0) L 12/21/17 17:36 Cholesterol 202 mg/dL (< 200) H 12/21/17 17:36 LDL Cholesterol, Calc 135 mg/dL (0-99) H 12/21/17 17:36 Urine Clarity Cloudy (Clear) A 12/24/17 13:15 Urine Protein 30 mg/dL (Neg-Trace) H 12/24/17 13:15 Urine Blood Trace (Negative) H 12/24/17 13:15 Ur Leukocyte Esterase Moderate (Negative) H 12/24/17 13:15 Urine Microscopic RBC 5-15 per hpf (0-3) H 12/24/17 13:15 Urine Microscopic WBC 30-50 per hpf (0-3) H 12/24/17 13:15 Ur Squamous Epith Cells Many per lpf (None-Few) H 12/24/17 13:15 Ur Culture Indicated? NO. (NO) A 12/24/17 13:15 - VTE Documentation of Mechanical Device: Intermittent pneumatic compression device Consult Discharge Plan - Plan Referrals: NONE,PCP [Primary Care Provider] -
[2017-12-24 16:09] LABS: Hemoglobin 8.8 g/dL (11.5-15.4)
[2017-12-24] MEDS: cefTRIAXone 1,000 MG in Water for inj. (sterile) 20 ML 10 ML IVP SCH (18:15)
[2017-12-24] MEDS: Ciprofloxacin/Dex *EAR* Susp 7.5 ML BOTTLE RIGHT EAR SCH ×3 (18:16→22:23)
[2017-12-25] MEDS: Ciprofloxacin/Dex *EAR* Susp 7.5 ML BOTTLE RIGHT EAR SCH ×4 (02:16→13:25)
[2017-12-25 05:12] LABS: Hematocrit 27.2 % (35.3-44.9); Hemoglobin 9.1 g/dL (11.5-15.4); Mean Corpuscular HGB Conc 33.5 g/dL (31.6-35.5); Mean Corpuscular Volume 92.5 fL (83.0-100.0); Mean Platelet Volume 9.7 fL (9.4-12.4); Platelet Count 176 K/mcL (140-400); Red Blood Count 2.94 M/mcL (3.82-4.97); Red Cell Distribution Width 14.8 % (11.5-14.5)
[2017-12-25 05:29] LABS: BUN/Creatinine Ratio 21 (6-26); Blood Urea Nitrogen 9 mg/dL (8-23); Calcium 7.8 mg/dL (8.6-10.3); Carbon Dioxide 26 mEq/L (23-29); Chloride 107 mEq/L (98-107); Glucose 116 mg/dL (70-105); Osmolality,Calculated 282 (280-300); Potassium 3.7 mEq/L (3.5-5.1); Sodium 136 mEq/L (136-145); eGFR For African Americans > 60 (> 60); eGFR For Non-African Americans > 60 (> 60)
[2017-12-25] MEDS: *HR* Enoxaparin 30 MG/0.3 ML SYRINGE SQ SCH (06:45)
--- NOTE | 2017-12-25 10:25 | Orthopedics Progress Note ---
Date of Encounter: 12/25/17 Time of Encounter: 09:20 - Assessment and Plan (1) Fracture of hip Current Visit: No Status: Inactive POD#3 s/p right hip hemiarthroplasty 12/23/17 Dressings were changed yesterday, some serous drainage and very mild erythema surrounding honeycomb dressing. She is currently on rocephin. WBC 6.8. Temp 98.7 Hgb 9.1 today, received transfusion 1 unit last night. Per nurse, plan for DC today if repeat Hgb this afternoon stable/improved. CT hip/pelvis showed no hematoma. Continue with therapy, WBAT Ice to right hip as needed. DVT prophylaxis - recommend lovenox for 2 weeks and then aspirin 325mg daily for 4 weeks after that. Patient accepted at [facility] upon discharge once medically stable. Will follow up with Jacqueline Membreno PA-C in [facility] office at [facility]. Qualifiers: Encounter type: initial encounter Fracture type: closed Laterality: right Qualified Code(s): S72.001A - Fracture of unspecified part of neck of right femur, initial encounter for closed fracture Subjective Principal diagnosis: POD#3 s/p right hip hemiarthroplasty 12/22/17 Interval history: Patient doing well today and she states she feels pretty good with no new concerns. States therapy still doing ok. Denies any n/t in leg, denies calf pain. Objective Vital signs: Vital Signs Temp Pulse Resp BP Pulse Ox 12/25/17 06:37 98.7 F 92 16 139/67 95 12/25/17 03:09 98.5 F 83 14 125/74 97 12/24/17 23:41 98.9 F 97 15 117/65 97 12/24/17 23:26 96 12/24/17 23:25 98.8 F 88 16 106/63 12/24/17 19:35 98.7 F 106 14 128/51 99 12/24/17 15:33 98.7 F 106 16 117/62 96 12/24/17 11:59 99.2 F 105 16 113/60 95 Intake and Output 12/24/17 12/25/17 12/25/17 23:59 07:59 15:59 Intake Total 1000 / 1000 350 / 350 Output Total 300 / 300 500 / 500 Balance 700 / 700 -150 / -150 Intake: IV Fluids 1000 / 1000 0.9 % Sodium Chloride 1,000 ML 1000 / 1000 @ 100 mls/hr IVC .Q10H LEYLA Rx#: [id number] Blood Product 0 / 0 350 / 350 Rbcs Leuko Poor As-1 Unit 0 / 0 350 / 350 [id number] Output: Urine 300 / 300 500 / 500 Other: # Voids 1 Incision: draining (New dressings intact with mild serous drainage, very mild surrounding erythema outside honeycomb dressing. No tenderness to palpation to hip. No calf tenderness. good dorsiflexion of foot, grossly NV intact. ) - Labs CBC & BMP: 12/25/17 04:52 12/25/17 04:52 Labs: Abnormal lab results RBC 2.94 M/mcL (3.82-4.97) L 12/25/17 04:52 Hgb 9.1 g/dL (11.5-15.4) L 12/25/17 04:52 Hct 27.2 % (35.3-44.9) L 12/25/17 04:52 RDW 14.8 % (11.5-14.5) H 12/25/17 04:52 PT 13.4 Seconds (9.4-12.1) H 12/22/17 01:16 Creatinine 0.42 mg/dL (0.60-1.20) L 12/25/17 04:52 Glucose 116 mg/dL (70-105) H 12/25/17 04:52 Calcium 7.8 mg/dL (8.6-10.3) L 12/25/17 04:52 Total Bilirubin 0.2 mg/dL (0.3-1.0) L 12/21/17 17:36 Cholesterol 202 mg/dL (< 200) H 12/21/17 17:36 LDL Cholesterol, Calc 135 mg/dL (0-99) H 12/21/17 17:36 Urine Clarity Cloudy (Clear) A 12/24/17 13:15 Urine Protein 30 mg/dL (Neg-Trace) H 12/24/17 13:15 Urine Blood Trace (Negative) H 12/24/17 13:15 Ur Leukocyte Esterase Moderate (Negative) H 12/24/17 13:15 Urine Microscopic RBC 5-15 per hpf (0-3) H 12/24/17 13:15 Urine Microscopic WBC 30-50 per hpf (0-3) H 12/24/17 13:15 Ur Squamous Epith Cells Many per lpf (None-Few) H 12/24/17 13:15 Ur Culture Indicated? NO. (NO) A 12/24/17 13:15 - VTE Documentation of Mechanical Device: Intermittent pneumatic compression device Consult Discharge Plan - Plan Referrals: NONE,PCP [Primary Care Provider] -
[2017-12-25] MEDS: cefTRIAXone 1,000 MG in Water for inj. (sterile) 20 ML 10 ML IVP SCH (11:07)
[2017-12-25 11:49] VITALS: BP 123/61
--- NOTE | 2017-12-25 12:42 | Discharge Summary ---
- NOTES TO OUTPATIENT PROVIDER Notes to Outpatient Provider: Lovenox for 2 weeks and then aspirin 325mg daily for 4 weeks after that. Will follow up with orthopedic surgery /Jacqueline Membreno PA-C in [facility] office at [facility]. Complete 3 more days of cefdinir, continue 5 more days of ciprofloxacin eardrops on the right auditory canal Orders not resulted at time of discharge: Pending orders 12/22/17 19:36 Surgical Pathology [PTH] Routine 12/24/17 10:05 Occult Blood,Stool [BF] Routine 12/24/17 10:24 Culture,Blood [BC] Stat 12/24/17 13:15 Culture,Urine [RM] Routine 12/25/17 13:00 HH [Hemoglobin and Hematocrit] [HEME] Timed 12/26/17 04:00 Basic Metabolic Panel AM 0400 Complete Blood Count w/o Diff [HEME] AM 0400 Date of Encounter: 12/25/17 Time of Encounter: 12:39 - Discharge Diagnosis (1) Acute blood loss as cause of postoperative anemia Priority: Primary Status: Acute Assessment and Plan: Acute blood loss anemia secondary to surgery, possible hemoconcentration due to dehydration upon admission the patient had only 1 bowel movement during her hospitalization, unlikely GI bleed (2) Fracture of hip Priority: Primary Status: Inactive Assessment and Plan: Right hip fracture after a fall s/p hemiarthroplasty Qualifiers: Encounter type: initial encounter Fracture type: closed Laterality: right Qualified Code(s): S72.001A - Fracture of unspecified part of neck of right femur, initial encounter for closed fracture (3) Ankle sprain Priority: Secondary Status: Inactive Qualifiers: Encounter type: initial encounter Involved ligament of ankle: anterior talofibular ligament Laterality: right Qualified Code(s): S93.491A - Sprain of other ligament of right ankle, initial encounter (4) Leukopenia Priority: Secondary Status: Acute Qualifiers: Neutropenia type: unspecified Qualified Code(s): D70.9 - Neutropenia, unspecified (5) Hypokalemia Priority: Secondary Status: Acute (6) Hyponatremia Priority: Secondary Status: Acute (7) UTI (urinary tract infection) Priority: Secondary Status: Acute Qualifiers: Urinary tract infection type: acute cystitis Hematuria presence: without hematuria Qualified Code(s): N30.00 - Acute cystitis without hematuria (8) Otitis externa Priority: Secondary Status: Acute Assessment and Plan: Right otitis externa Qualifiers: Otitis externa type: other infective Chronicity: acute Laterality: right Qualified Code(s): H60.391 - Other infective otitis externa, right ear Hospital course: Ms. Magaña is a 87 year old female with no past medical or surgical service, who presented to the ER with right leg pain. Most of her pain in the ankle but also had some intermittent hip/thigh aching, worse with walking. She fell roughly 1 month ago where she missed the last step in her home. She stated she was unable to ambulate and family found her a couple days later. Since that time she has been "hobbling" around with a walker bearing some weight to leg. Normally she walked around without a walker before the fall. She stated she never sought medical attention due to having things to take care of at home ( taxes, roof repairs) but decided to seek medical attention because her shoulders are getting sore from using the walker. Denied any numbness or tingling to legs. Was transferred from [place]. X-rays of the right hip revealed fracture and right ankle sprain without any fracture. Surgery/ right hemiarthroplasty performed by Dr Ricardo on 12/22/17 - Post op day #2 - Was given IV fluids due to tachycardia likely from UTI , blood loss after surgery and right otitis externa. Hb was 12.6 upon admission, dropped down to 8.8. Was transfused with 1 unit of blood. No evidence of active bleeding. CT scan of the abdomen/pelvis showed:1. Left denise pelvic/thigh postsurgical soft tissue changes with no discrete hematoma. 2. Mild pelvic retroperitoneal edema and asymmetric right piriformis muscular edema. No discrete retroperitoneal/intrapelvic hematoma. 3. No acute abdominal hemorrhage. CT scan of the right hip showed:1. Status post recent right bipolar hip arthroplasty. 2. Small to moderate-sized fluid collection within the lateral right hip subcutaneous tissues measuring approximately 8 x 3 x 2 cm. Given the recent surgery a seroma is favored over abscess. 3. Numerous foci of soft tissue gas and subcutaneous stranding, likely postsurgical. 4. Edema throughout the right short adductor musculature may be related to the recent surgery. Calcification within the right short adductor musculature is likely related to prior injury. Chest x-ray did not show any acute cardiopulmonary disease UA showed 50 white blood cells, urine culture was ordered but the patient is improving on Rocephin. Stable to be discharged Hb is 9.9 - Time Spent with Patient Total time spent providing and/or coordinating discharge services: Greater than 30 minutes (40 min) - Discharge Medications Prescriptions: Enoxaparin [Lovenox] 30 mg SQ Q12HCO #28 syringe Aspirin/Calcium Carbonate/Mag [Aspirin Buffered 325 mg Tab] 325 mg PO DAILY #30 tablet Cefdinir [Omnicef] 300 mg PO BID #6 capsule Ciprofloxacin/Dex *EAR* Susp [Ciprodex *EAR* Susp] 4 drop RIGHT EAR Q4H 5 Days # 1 bottle OxyCODONE Immed Rel [Roxicodone 5 MG] 5 mg PO Q6H PRN 5 Days #20 tablet PRN Reason: Severe Pain 7-10 Home Medications: Aspirin/Calcium Carbonate/Mag [Aspirin Buffered 325 mg Tab] 325 mg PO DAILY #30 tablet 12/25/17 [Rx] Cefdinir [Omnicef] 300 mg PO BID #6 capsule 12/25/17 [Rx] Ciprofloxacin/Dex *EAR* Susp [Ciprodex *EAR* Susp] 4 drop RIGHT EAR Q4H 5 Days # 1 bottle 12/25/17 [Rx] Docusate [Colace] 100 mg PO DAILY PRN capsule 12/25/17 [Rx] Enoxaparin [Lovenox] 30 mg SQ Q12HCO #28 syringe 12/25/17 [Rx] Ferrous Sulfate 325 mg PO BIDWM tablet 12/25/17 [Rx] Omeprazole [PriLOSEC] 40 mg PO DAILY@0630 capsule. 12/25/17 [Rx] OxyCODONE Immed Rel [Roxicodone 5 MG] 5 mg PO Q6H PRN 5 Days #20 tablet [Rx] Allergies/Adverse Reactions: 3 Allergy/AdvReac Type Severity Reaction Status Date / Time oseltamivir [From Tamiflu] Allergy Hallucinati Verified 12/21/17 12:46 ng Date of admission: 12/21/17 13:29 Primary care physician: PCP NONE Consults: 12/23/17 03:16 Consult to Physical Therapy [CONS] Routine Comment: Evaluate, develop and implement POC Reason for Consult: total hip replacement Does patient have active BEDREST order?: No Is patient medically & hemodynamically stable?: Yes 12/23/17 03:20 Consult to Occupational Therapy [CONS] Routine Comment: Evaluate, develop and implement POC Reason for Consult: total hip replacement Does patient have active BEDREST order?: No Is patient medically & hemodynamically stable?: Yes Consult to Therapist Occupational [CONS] Routine Reason for SW Consult: post op joint replacement 12/23/17 03:21 Consult to Nurse Navigator [CONS] Routine Comment: ortho navigator - Constitutional Vitals: Temp Pulse Resp BP Pulse Ox 97.7 F 96 16 123/61 94 12/25/17 11:48 12/25/17 11:48 12/25/17 11:48 12/25/17 11:48 12/25/17 11:48 General appearance: Present: A&O X 3 Exam: - Head Head exam: Present: atraumatic, normocephalic Erythema and tenderness in the right external auditory canal has subsided - Eye Eye exam: Present: PERRL, conjuntiva pink, sclera anicteric Pupils: Present: PERRL - Neck Neck exam general surgery: Present: supple, trachea midline. Absent: lymphadenopathy - Respiratory Respiratory exam: Present: CTAB. Absent: accessory muscle use, rales, rhonchi, wheezes - Cardiovascular Cardiovascular exam: Present: RRR, +S1, +S2. Tachycardic Absent: diastolic murmur, gallop, rubs, systolic murmur - GI/Abdominal GI/Abdominal exam: Present: normal bowel sounds, soft, no peritoneal signs. Absent: distended, tenderness - Extremities Exam Extremities exam: Present: warm, radial pulses palpable and symmetrical. Absent : calf tenderness, cyanotic, pedal edema - Neurological Exam Neurological exam: Present: CN II-XII intact, oriented X3, no focal deficits. Absent: pronater drift, facial droop, speech deficit - Skin Skin exam: Present: dry. Absent: intact Additional comments: right hip surgical wound without signs of infection of hematoma - Patient Status Disposition: Transfer SNF Overall status at discharge: patient is progressing back to baseline - Discharge Instructions Follow Up With: NONE,PCP [Primary Care Provider] - - Diet and Activity Activity: increase activity as tolerated Diet: regular diet - VTE Documentation of Mechanical Device: Intermittent pneumatic compression device
--- NOTE | 2017-12-25 12:54 | Physician Discharge Referral ---
ExtendedCare Referral Info Provider in Charge after Transfer: PCP Institutional Level of Care: Skilled - Diagnosis (1) Acute blood loss as cause of postoperative anemia Status: Acute (2) Fracture of hip Status: Inactive (3) Ankle sprain Status: Inactive (4) Leukopenia Status: Acute (5) Hypokalemia Status: Acute (6) Hyponatremia Status: Acute (7) UTI (urinary tract infection) Status: Acute (8) Otitis externa Status: Acute - Transfer Medications Prescriptions: Enoxaparin [Lovenox] 30 mg SQ Q12HCO #28 syringe Aspirin/Calcium Carbonate/Mag [Aspirin Buffered 325 mg Tab] 325 mg PO DAILY #30 tablet Cefdinir [Omnicef] 300 mg PO BID #6 capsule Ciprofloxacin/Dex *EAR* Susp [Ciprodex *EAR* Susp] 4 drop RIGHT EAR Q4H 5 Days # 1 bottle OxyCODONE Immed Rel [Roxicodone 5 MG] 5 mg PO Q6H PRN 5 Days #20 tablet PRN Reason: Severe Pain 7-10 Home Medications: Aspirin/Calcium Carbonate/Mag [Aspirin Buffered 325 mg Tab] 325 mg PO DAILY #30 tablet 12/25/17 [Rx] Cefdinir [Omnicef] 300 mg PO BID #6 capsule 12/25/17 [Rx] Ciprofloxacin/Dex *EAR* Susp [Ciprodex *EAR* Susp] 4 drop RIGHT EAR Q4H 5 Days # 1 bottle 12/25/17 [Rx] Docusate [Colace] 100 mg PO DAILY PRN capsule 12/25/17 [Rx] Enoxaparin [Lovenox] 30 mg SQ Q12HCO #28 syringe 12/25/17 [Rx] Ferrous Sulfate 325 mg PO BIDWM tablet 12/25/17 [Rx] Omeprazole [PriLOSEC] 40 mg PO DAILY@0630 capsule. 12/25/17 [Rx] OxyCODONE Immed Rel [Roxicodone 5 MG] 5 mg PO Q6H PRN 5 Days #20 tablet [Rx] Allergies/Adverse Reactions: 3 Allergy/AdvReac Type Severity Reaction Status Date / Time oseltamivir [From Tamiflu] Allergy Hallucinati Verified 12/21/17 12:46 ng - Respiratory Orders Smoking Cessation: Smoking cessation has been advised. For more information, call the [place] Tobacco Quit Line at 4-562-WYRI-NOW. - Advance Directives Code Status: Full Code - Treatments List/Other: Lovenox for 2 weeks and then aspirin 325mg daily for 4 weeks after that. Will follow up with orthopedic surgery /Jacqueline Membreno PA-C in [facility] office at [facility]. Complete 3 more days of cefdinir, continue 5 more days of ciprofloxacin eardrops on the right auditory canal - Diet Orders Regular CERTIFICATION: I certify that the transfer of the above named patient to an Extended Care Facility is necessary for the continuing treatment of the diagnosis listed. The above information is true and accurate reflection of patient's current condition. Confidential - Redisclosure prohibited without a patient's written consent.
[2017-12-25] MEDS: 0.9 % Sodium Chloride 250 ML IVC SCH (13:31)
[2017-12-25 13:46] LABS: Hematocrit 30.3 % (35.3-44.9); Hemoglobin 9.9 g/dL (11.5-15.4)
== END 2017-12-25 15:20 | DRG 470 ==
LOC: 3ANU 13:29 → SUATTDRO 13:29 → 3NENU 15:26
PROVIDERS: ADMIT Student in an Organized Health Care Education/Training Program; ATTEND Internal Medicine